=== PATIENT | male | born 1980 | race Caucasian/White ===

== ENCOUNTER 2017-05-25 01:17 | Emergency (ER) | payer BC ==
[~2017-05-25] VITALS: Ht 200.7 cm; Wt 120.2 kg
[2017-05-25] MEDS ORDERED: OMEPRAZOLE20 M1 PO (01:31)
[2017-05-25] MEDS ORDERED: AUGMENTIN 875-1 EACH PO (02:16)
== END 2017-05-25 02:24 | disposition home or self-care (01) ==
LOC: ED 01:17
DX: K21.9 Gastro-esophageal reflux disease without esophagitis (principal); J68.0 Bronchitis and pneumonitis due to chemicals, gases, fumes and vapors; Z88.8 Allergy status to other drugs, medicaments and biological substances; Z79.899 Other long term (current) drug therapy
CPT/HCPCS: 71020; 99283